=== PATIENT | male | born 1965 | race Caucasian/White ===

== ENCOUNTER 2022-06-01 08:46 | Outpatient (CLI) | payer OTHER, SELFPAY ==
[2022-06-01 11:20] LABS: Chloride* 98 mmol/L (96-114)
[2022-06-01 11:21] LABS: Potassium* 4.3 mmol/L (3.6-5.1); Sodium* 134 mmol/L (135-149)
[2022-06-01 11:23] LABS: Blood Urea Nitrogen* 15 mg/dL (7-30); Carbon Dioxide* 34 mmol/L (20-32); Cholesterol* 190 mg/dL (90-199); Creatinine* 0.9 mg/dL (0.5-1.5); Estimated Glomerular Filt Rate 99.62
[2022-06-01 11:24] LABS: Calcium* 9.2 mg/dL (8.4-10.6); Glucose* 108 mg/dL (60-115); HDL Cholesterol* 36 mg/dL (>=40); LDL Cholesterol Calculated 118 mg/dL (<100); Triglycerides* 181 mg/dL (40-149)
== END 2022-06-01 08:47 | disposition home or self-care (01) ==
PROVIDERS: PCP Family Medicine; Visit Provider Internal Medicine
DX: Z00.00 Encounter for general adult medical examination without abnormal findings (principal); I10 Essential (primary) hypertension; E78.5 Hyperlipidemia, unspecified; E66.9 Obesity, unspecified; F17.220 Nicotine dependence, chewing tobacco, uncomplicated
CPT/HCPCS: 80048; 80061

== ENCOUNTER 2023-06-14 07:52 | Outpatient (CLI) | payer OTHER, SELFPAY | END 2023-06-14 07:53 | disposition home or self-care (01) | LOC: NFLDREF 06-15 10:27 | PROVIDERS: PCP Internal Medicine; Referring Provider Internal Medicine; Visit Provider Internal Medicine | DX: E78.5 Hyperlipidemia, unspecified (principal); I10 Essential (primary) hypertension | CPT/HCPCS: 80048; 80061 ==

== ENCOUNTER 2024-06-28 08:02 | Outpatient (CLI) | payer OTHER, SELFPAY ==
--- OUTSIDE RECORDS SUMMARY | 2024-06-29 07:23 | XMS_ITS | Referral Summary ---
Author Organization [facility] Address [address] [place] [address]. [place] [address] Care Team Providers Care Manager Of Environmental Services Name Role Phone No Ref-Primary, Physician Primary Care Provider Encounters Date Type Department Care Team Description 05/24/2024 [facility] [address] [place] [address] Elise Esqueda MD Shingles from Last 3 Months Allergies Active Allergy Reactions Criticality Noted Date Comments Penicillins 11/12/2023 Medications Medication Sig Dispensed Refills Start Date End Date Status amLODIPine-benazepr il (LOTREL) 10-40 MG capsule Take 1 capsule by mouth daily 08/21/2023 Active hydrochlorothiazide (MICROZIDE) 12.5 MG capsule 12.5 MG ORALLY EVERY MORNING 09/22/2023 Active rosuvastatin (CRESTOR) 20 MG tablet 20 MG ORALLY EVERY DAY 08/21/2023 Active aspirin 81 MG EC tablet Take 81 mg by mouth daily Active albuterol (PROAIR HFA/PROVENTIL HFA/VENTOLIN HFA) 108 (90 Base) MCG/ACT inhalerIndications: Lower resp. tract infection Inhale 1-2 puffs into the lungs every 4 hours as needed for shortness of breath or wheezing 18 g 11/12/2023 Active doxycycline hyclate (VIBRAMYCIN) 100 MG capsuleIndications: Lower resp. 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
--- OUTSIDE RECORDS SUMMARY | 2024-06-29 07:23 | XMS_ITS | Clinical Summary ---
Author Organization [facility] Address [address] [place] [address]. 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 Pulse 96 11/12/2023 4:21 PM SERVICE DISPATCHER Temperature 36.8 ??C (98.2 ??F) 11/12/2023 4:21 PM CS T Respiratory Rate - - Oxygen Saturation 97% 11/12/2023 4:21 PM SERVICE DISPATCHER Inhaled Oxygen Concentration - - Weight - - Height - - Body Mass Index - - Plan of Treatment Health Maintenance Due Date Last Done Comments ADVANCE CARE PLANNING 1964 ANNUAL REVIEW OF HM ORDERS 1964 CT COLONOGRAPHY 1964 FIT 1964 FLEX SIG 1964 GLUCOSE 1964 LIPID 1964 YEARLY PREVENTIVE VISIT 1964 sDNA (Cologuard) 1964 COLONOSCOPY 1974 COLORECTAL CANCER SCREENING 1974 HIV SCREENING 1979 HEPATITIS C SCREENING 1982 HEPATITIS B IMMUNIZATION (1 of 3 - 19+ 3-dose series) 1983 ZOSTER IMMUNIZATION (1 of 2) 2014 COVID-19 Vaccine (4 - 2022-2 4 season) 2023 11/13/2021, 03/14/2021, 02/21/2021 PHQ-2 (once per calendar year) 2023 INFLUENZA VACCINE (#1) 2024 , 11/17/2015, 09/19/2014 DTAP/TDAP/TD IMMUNIZATION (3 - Td or Tdap) 06/16/2033 06/16/2023, 04/05/2012 HPV IMMUNIZATION Aged Out No longer e ligible based on patient's age to complete this topic IPV IMMUNIZATION Aged Out No longer e ligible based on patient's age to complete this topic MENINGITIS IMMUNIZATION Aged Out No l onger eligible based on patient's age to complete this topic Pneumococcal Vaccine: Pediatrics (0 to 5 Years) and At-Risk Patients (6 to 64 Years) Aged Out No longer eligible b ased on patient's age to complete this topic RSV MONOCLONAL ANTIBODY Aged Out No l onger eligible based on patient's age to complete this topic Care Teams Gymnastics Coach Or Instructor Relationship Specialty Start Date End Date No Ref-Primary, Physician PCP - General 11/12/23
--- OUTSIDE RECORDS SUMMARY | 2024-06-29 07:23 | XMS_ITS | Encounter Summary ---
Author Organization [facility] Address [address] [place] [address]. [place] [address] Care Team Providers Care Scorekeeper Name Role Phone No Ref-Primary, Physician Primary Care Provider Reason for Visit * Reason Onset Date Comments Shingles 05/24/2024 Encounter Details Date Type Department Care Team (Late st Contact Info) Description 05/24/2024 Telephone [facility] [id number] [place] [phone] [place] [address] [place] [address] Shingles Social History Tobacco Use Types Packs/Day Years Used Date Smoking Tobacco: Never Assessed Adolescent Education Answer Date Record ed Getting School Help Needed Not on file 11/12 Sex and Gender Information Value Date Recorded Sex Assigned at Not on file Gender Identity Not on file Sexual Orientation Not on file documented as of this encounter Miscellaneous Notes * Telephone Encounter - Osmin Leal RN - 05/24/2024 5:38 PM CDT Patient calls, does not have a primary care doctor through [facility]. Informed patient I have limited ability to triage patient's that are not part of the [facility] system. Thinks he has shingles. Informed patient he should be seen for this issue either by his PCP or by an Urgent Care. Informed patient that they are highly contagious. Patient is in agreement with plan. documented in this encounter Plan of Treatment Not on file documented as of this encounter Visit Diagnoses Not on filedocumented in this encounter Care Teams Scorekeeper Relationship Specialty Start Date End Date No Ref-Primary, Physician PCP - General 11/12/23 documented as of this encounter
== END 2024-06-28 08:03 | disposition home or self-care (01) ==
LOC: NFLDREF 06-29 07:21
PROVIDERS: PCP Internal Medicine; Referring Provider Internal Medicine; Visit Provider Internal Medicine
DX: I10 Essential (primary) hypertension (principal); E78.5 Hyperlipidemia, unspecified; Z12.5 Encounter for screening for malignant neoplasm of prostate
CPT/HCPCS: 80048; 80061; G0103

== ENCOUNTER 2025-07-11 07:10 | Outpatient (CLI) | payer OTHER, SELFPAY | END 2025-07-11 07:11 | disposition home or self-care (01) | LOC: NFLDREF 07-23 01:56 | PROVIDERS: PCP Internal Medicine; Referring Provider Internal Medicine; Visit Provider Internal Medicine | DX: I10 Essential (primary) hypertension (principal); E78.5 Hyperlipidemia, unspecified; Z12.5 Encounter for screening for malignant neoplasm of prostate | CPT/HCPCS: 80048; 80061; G0103 ==

== ENCOUNTER 2025-08-08 07:46 | Outpatient (CLI) | payer OTHER, SELFPAY ==
--- NOTE | 2025-08-08 08:00 | CRLHL7_ITS ---
For Patients: As a result of the Century Cures Act, medical imaging exams and procedure reports are released immediately into your electronic medical record. You may view this report before your referring provider. If you have questions, please contact your health care provider. INDICATION: Adenopathy. COMPARISON: None. TECHNIQUE: CT soft tissue neck with IV contrast. Isovue 370, 99 cc IV. FINDINGS: Normal bilateral parotid and submandibular glands. Normal thyroid gland. Scattered small normal-sized cervical lymph nodes bilaterally. No supraclavicular superior mediastinal adenopathy. Nasopharynx and oropharynx are clear. No inflammation within the paravertebral fat pads or retropharyngeal space. Normal thickness of the epiglottis. Normal glottis with symmetric vocal cords. Lung apices are clear. Normal alignment of the cervical spine. Cervical spondylosis. No prevertebral soft tissue swelling. Visualized paranasal sinuses and mastoid air cells are clear. Normal orbits bilaterally. IMPRESSION: 1. No adenopathy. 2. Normal deep soft tissues of the neck. 3. Cervical spondylosis. No prevertebral soft tissue swelling Please note that all CT scans at this facility use dose modulation, iterative reconstruction, and/or weight-based dosing when appropriate to reduce radiation dose to as low as reasonably achievable. Dictated by Tahir Boo MD @ 08/09/2025 11:39:44 AM (Electronically Signed)
== END 2025-08-08 07:47 | disposition home or self-care (01) ==
LOC: CT 07:47
PROVIDERS: PCP Internal Medicine; Visit Provider Internal Medicine
DX: R59.0 Localized enlarged lymph nodes (principal); M47.892 Other spondylosis, cervical region
CPT/HCPCS: 70491; Q9967